=== PATIENT | male | born 1975 | race Caucasian/White ===

== ENCOUNTER 2020-10-25 05:55 | Day surgery (SDC) | payer OTHER, BC ==
[2020-10-25] MEDS ORDERED: Nozin Nasal Sanitizer NASBOTH ONE (06:00)
[2020-10-25] MEDS ORDERED: Bupivacaine 0.5% 30 ML SDV ONE ×2 (06:31→07:23)
[2020-10-25] MEDS ORDERED: Lactated Ringers 1,000 ML IV SCH (07:00)
[2020-10-25] MEDS ORDERED: Propofol 200 MG/20 ML SDV ONE (07:20)
[2020-10-25] MEDS ORDERED: Midazolam 1 MG/ML 2 ML SDV ONE (07:20)
[2020-10-25] MEDS ORDERED: fentaNYL 100 MCG/2 ML SDV ONE (07:20)
[2020-10-25] MEDS ORDERED: ceFAZolin 2 GM in Premix Bag 1 BAG IV ONE (07:30)
[2020-10-25] MEDS ORDERED: Ondansetron 4 MG/2 ML SDV ONE (07:59)
[2020-10-25] MEDS ORDERED: Rocuronium 50 MG/5 ML Vial ONE (07:59)
[2020-10-25] MEDS ORDERED: Neostigmine Methylsulfate 1 MG/ML 5 ML Syringe ONE (07:59)
[2020-10-25] MEDS ORDERED: Glycopyrrolate 0.2 MG/ML 5 ML MDV ONE (07:59)
[2020-10-25] MEDS ORDERED: Dexamethasone 4 MG/ML SDV ONE (07:59)
[2020-10-25] MEDS ORDERED: Succinylcholine 200 MG/10 ML MDV ONE (07:59)
[2020-10-25] MEDS ORDERED: methylPREDNISolone Acetate 40 MG/ML SDV ONE (08:28)
[2020-10-25] MEDS ORDERED: fentaNYL 250 MCG/5 ML SDV ONE (08:29)
[2020-10-25] MEDS ORDERED: Labetalol 20 MG/4 ML Syringe ONE (09:03)
[2020-10-25] MEDS ORDERED: Lactated Ringers 1,000 ML ONE (09:04)
[2020-10-25] MEDS ORDERED: Acetaminophen/oxyCODONE 325-5 MG Tab PO PRN (10:36)
[2020-10-25 11:27] VITALS: PULSE 92
[2020-10-25 11:29] VITALS: BP 145/75
--- NOTE | 2020-11-06 18:40 | OR ---
DATE OF PROCEDURE: 10/25/2020 SURGEON: Harish Gill MD PREOPERATIVE DIAGNOSES: 1. Impingement of right shoulder. 2. Acromioclavicular arthrosis, right shoulder. 3. Right carpal tunnel. POSTOPERATIVE DIAGNOSES: 1. Impingement of right shoulder. 2. Acromioclavicular arthrosis, right shoulder. 3. Right carpal tunnel. PROCEDURE: Arthroscopy of the right shoulder with subacromial decompression, acromioplasty, distal clavicle resection (Irck procedure), and injection of right carpal tunnel with Depo-Medrol. ANESTHESIA: Interscalene block and general anesthesia. INDICATIONS: Ian is a 45-year-old gentleman with a history of longstanding right shoulder and arm pain. He is having difficulty with overhead activities, particularly reaching and lifting and repetitive motion. He works for the post [employer] and does repetitive activity most of the day as well as reaching, pushing, carrying, etc. He has failed conservative treatment. Examination and MRI are consistent with impingement of right shoulder and AC arthrosis. He now presents for arthroscopy with evaluation of the rotator cuff, subacromial decompression with acromioplasty, and distal clavicle resection. He also has been having increasing difficulty with tingling and numbness and pain into the right hand. He has been diagnosed with a right carpal tunnel syndrome. Symptoms currently are intermittent but getting progressively worse, and the plan is for injection of the right carpal tunnel. The risks, benefits, and potential complications of the procedure were discussed. PROCEDURE IN DETAIL: After adequate anesthesia was obtained, the patient was placed in the lateral decubitus position and secured with a james bag positioner. The right shoulder and arm were prepped and draped in a sterile fashion, and 15 pounds of traction was placed in shoulder traction unit. A standard posterior portal was established, and glenohumeral joint was inspected. This revealed no evidence of articular cartilage damage to the humeral head. Some very mild thinning of the central glenoid was present. The labrum was intact, all portions of the glenoid. The biceps was intact with some very mild fraying at the junction of the biceps and superior labrum, but no SLAP tear or peel back was present. Subscapularis was intact. The undersurface of the rotator cuff was also intact with no evidence of significant tendinopathy or partial thickness tear. The scope was withdrawn and placed in to the subacromial space. This revealed a moderate bursitis. A lateral portal was established, and the bursa was cleared using a combination of shaver and ablation wand. A rather thick coracoacromial ligament with impingement against the cuff was noted. This was resected from the undersurface of the acromion. The anterolateral edge was delineated. A robert was then used to perform an acromioplasty, removing approximately 4 mm from the anterolateral edge and bevelling it medially and posteriorly. Resection was carried over to the AC joint. The inferior capsule was removed with the ablation wand and then shaver. The undersurface of the distal clavicle was then resected with a robert. When the limits of this was reached, a robert was placed to the anterior portal and resection continued in an [id number] manner. Once this was resected for approximately 8 mm, the scope was withdrawn. Arm was taken through internal and external rotation. Rotator cuff was inspected with no evidence of rotator cuff tear, fraying, or significant tendinopathy. The scope was withdrawn. Shoulder was drained. Port sites were closed in a standard fashion. A sterile dressing was applied. The right wrist was then injected at the distal wrist crease just ulnar to the palmaris longus in line with the 3rd and 4th finger intersection. The patient tolerated the procedure well. There were no complications. He was taken from the operating room in stable condition. Harish Gill MD /[id number] MTDLeonel
== END 2020-10-25 12:50 | disposition home or self-care (01) ==
LOC: JP.SDS 05:55
PROVIDERS: ATTEND Specialist
DX: M19.011 Primary osteoarthritis, right shoulder (principal); M25.811 Other specified joint disorders, right shoulder; G56.01 Carpal tunnel syndrome, right upper limb; M75.51 Bursitis of right shoulder; G47.33 Obstructive sleep apnea (adult) (pediatric); E66.01 Morbid (severe) obesity due to excess calories; I48.91 Unspecified atrial fibrillation; Z88.8 Allergy status to other drugs, medicaments and biological substances; Z98.890 Other specified postprocedural states; Z68.42 Body mass index [BMI] 45.0-49.9, adult
CPT/HCPCS: 20526; 29824; 29826; 36415; 80053; 85027; A9270; J0330; J0690; J1030; J1100; J2250; J2405; J2704; J2710; J3010; J3490; J7120

== ENCOUNTER → 2021-06-20 | Day surgery (SDC) | payer BC ==
[~2021-06-20] MED LIST: Lidocaine 0.5% 50 ML SDV ONE; Midazolam 1 MG/ML 2 ML SDV ONE; Propofol 200 MG/20 ML SDV ONE; fentaNYL 100 MCG/2 ML SDV ONE
[2021-06-20] MEDS: Nozin Nasal Sanitizer NASBOTH ONE (06:59)
[2021-06-20] MEDS: Lactated Ringers 1,000 ML IV SCH (06:59)
[2021-06-20] MEDS: ceFAZolin 1 GM in Premix Bag 1 BAG IV ONE (07:17)
[2021-06-20] MEDS: Bupivacaine 0.5% 30 ML SDV ONE (08:09)
[2021-06-20] MEDS: traMADol 50 MG Tab PO ONE (09:10)
[2021-06-20 09:15] VITALS: BP 142/92; PULSE 73
--- NOTE | 2021-06-28 11:06 | OR ---
DATE OF PROCEDURE: 06/20/2021 SURGEON: Harish Gill MD PREOPERATIVE DIAGNOSIS: Right carpal tunnel syndrome. POSTOPERATIVE DIAGNOSIS: Right carpal tunnel syndrome. PROCEDURE: Right carpal tunnel release. ANESTHESIA: Yan block with sedation. INDICATIONS: Ian is a 46-year-old gentleman with a history of right carpal tunnel syndrome, which has gotten progressively worse over the past couple of years. 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 He has documented carpal tunnel syndrome by EMG and progressive symptoms and findings. Now presents for carpal tunnel release. Risks, benefits, potential complications were discussed. DESCRIPTION OF PROCEDURE: After adequate anesthesia was obtained, right hand was prepped and draped in a sterile fashion. A longitudinal incision was made in the palm distal to the wrist crease in line with the interspace between the 3rd and 4th fingers. This was carried down through the subcutaneous tissues. Palmar fascia was divided and the transverse carpal ligament was then identified. The ligament was divided under direct visualization. Division was completed proximally and distally. Confirmation of division was done both visually and by palpation. Contents of the carpal tunnel were evaluated. Significant release of pressure on the median nerve was noted with transection of the ligament. No significant tenosynovitis or evidence of space-occupying mass was present. Wound was irrigated and closed with 3-0 nylon in interrupted mattress fashion. Skin edges were infiltrated with 0.5% Marcaine and a sterile dressing was applied. Patient tolerated the procedure very well. There were no complications. Taken from the operating room in stable condition. Harish Gill MD /[id number] MTDLeonel
== END ==
LOC: JP.SDS 05:40
PROVIDERS: ATTEND Specialist
DX: G56.01 Carpal tunnel syndrome, right upper limb (principal); G47.33 Obstructive sleep apnea (adult) (pediatric)
CPT/HCPCS: 36415; 80048; 85027; A9270-GY; J0690; J2250; J2704; J3010; J3490; J7120

== ENCOUNTER 2021-09-26 06:02 | Day surgery (SDC) | payer BC, OTHER ==
[2021-09-26] MEDS ORDERED: Bupivacaine 0.5% 30 ML SDV ONE (06:45)
[2021-09-26 06:54] LABS: CORONAVIRUS COVID-19 NAA NEGATIVE (NEGATIVE)
[2021-09-26] MEDS ORDERED: Nozin Nasal Sanitizer NASBOTH ONE (06:57)
[2021-09-26] MEDS ORDERED: Lactated Ringers 1,000 ML IV SCH (07:00)
[2021-09-26] MEDS ORDERED: ceFAZolin 1 GM in Premix Bag 1 BAG IV ONE (07:00)
[2021-09-26] MEDS ORDERED: Midazolam 1 MG/ML 2 ML SDV ONE (07:26)
[2021-09-26] MEDS ORDERED: fentaNYL 100 MCG/2 ML SDV ONE (07:26)
[2021-09-26] MEDS ORDERED: Propofol 200 MG/20 ML SDV ONE ×2 (07:26→08:17)
[2021-09-26] MEDS ORDERED: Lidocaine 0.5% 50 ML SDV ONE (07:26)
[2021-09-26] MEDS ORDERED: Ketorolac 30 MG/ML SDV ONE (08:13)
[2021-09-26] MEDS ORDERED: Acetaminophen/oxyCODONE 325-5 MG Tab PO ONE (09:10)
[2021-09-26 09:33] VITALS: BP 137/90; PULSE 78
== END 2021-09-26 10:00 | disposition home or self-care (01) ==
LOC: JP.SDS 06:02
PROVIDERS: ATTEND Specialist
DX: G56.02 Carpal tunnel syndrome, left upper limb (principal); I48.91 Unspecified atrial fibrillation; E78.5 Hyperlipidemia, unspecified; Z98.890 Other specified postprocedural states; Z79.899 Other long term (current) drug therapy; Z88.8 Allergy status to other drugs, medicaments and biological substances; Z20.822 Contact with and (suspected) exposure to COVID-19
CPT/HCPCS: 0241U; 36415; 64721; 80048; 85027; A9270; J0690; J1885; J2250; J2704; J3010; J3490; J7120

== ENCOUNTER 2023-01-08 06:47 | Day surgery (SDC) | payer OTHER, BC ==
[2023-01-08] MEDS ORDERED: Bupivacaine 0.5% 30 ML SDV ONE ×2 (06:55→07:22)
[2023-01-08 07:15] LABS: HEMATOCRIT 44.6 % (38.4-49.7); HEMOGLOBIN 14.8 g/dL (12.9-16.9); MEAN CORPUSCULAR HEMOGLOBIN 29.5 pg (31.6-35.5); MEAN CORPUSCULAR HGB CONC 33.2 g/dL (31.6-35.5); RED BLOOD CELL COUNT 5.01 M/uL (4.14-5.76); WHITE BLOOD CELL COUNT,WBC 9.1 K/uL (3.2-11.0)
[2023-01-08] MEDS ORDERED: Lactated Ringers 1,000 ML IV SCH (07:15)
[2023-01-08] MEDS ORDERED: fentaNYL 100 MCG/2 ML SDV ONE (07:20)
[2023-01-08] MEDS ORDERED: Midazolam 1 MG/ML 2 ML SDV ONE (07:20)
[2023-01-08] MEDS ORDERED: Propofol 200 MG/20 ML SDV ONE (07:20)
[2023-01-08] MEDS ORDERED: Nozin Nasal Sanitizer NASBOTH ONE (07:30)
[2023-01-08 07:37] LABS: A/G RATIO 0.9 (1.2-2.2); ALANINE AMINOTRANSFERASE,ALT 39 U/L (12-78); ALBUMIN 3.6 g/dL (3.4-5.0); ALKALINE PHOSPHATASE 117 U/L (46-116); ASPARTATE AMNIOTRANSFERASE,AST 16 U/L (15-37); BILIRUBIN TOTAL 0.4 mg/dL (0.2-1.0); BLOOD UREA NITROGEN,BUN 13 mg/dL (7-18); CALCIUM 8.9 mg/dL (8.5-10.1); CARBON DIOXIDE,CO2 30 mmol/L (21-32); CHLORIDE,CL 101 mmol/L (100-108); EST CRCL DRUG DOSING (CG) 94.29 mL/min; ESTIMATED GFR 93 mL/min (>60); GLUCOSE RANDOM 170 mg/dL (74-106); POTASSIUM,K 4.2 mmol/L (3.6-5.2); PROTEIN TOTAL,TP 7.6 g/dL (6.4-8.2); SODIUM,NA 137 mmol/L (140-148)
[2023-01-08 07:38] LABS: ANION GAP 10.2 mmol/L (5.0-14.0)
[2023-01-08] MEDS ORDERED: ceFAZolin 2 GM in Premix Bag 1 BAG IV ONE (08:00)
[2023-01-08] MEDS ORDERED: ceFAZolin 1 GM in Sodium Chloride 0.9% 50 ML IV ONE (08:00)
[2023-01-08] MEDS ORDERED: Succinylcholine 200 MG/10 ML MDV ONE (08:36)
[2023-01-08] MEDS ORDERED: Rocuronium 50 MG/5 ML Vial ONE (08:36)
[2023-01-08] MEDS ORDERED: Ondansetron 4 MG/2 ML SDV ONE (08:47)
[2023-01-08] MEDS ORDERED: Dexamethasone 4 MG/ML SDV ONE (08:47)
[2023-01-08] MEDS ORDERED: Glycopyrrolate 0.2 MG/ML 5 ML MDV ONE (08:48)
[2023-01-08] MEDS ORDERED: Neostigmine Methylsulfate 1 MG/ML 5 ML Syringe ONE (08:48)
[2023-01-08] MEDS ORDERED: fentaNYL 250 MCG/5 ML SDV ONE (08:57)
[2023-01-08] MEDS ORDERED: Labetalol 20 MG/4 ML Syringe ONE (09:25)
[2023-01-08] MEDS ORDERED: Acetaminophen/oxyCODONE 325-5 MG Tab PO PRN (10:45)
[2023-01-08 12:33] VITALS: BP 145/85; PULSE 92
== END 2023-01-08 12:43 | disposition home or self-care (01) ==
LOC: JP.SDS 06:47
PROVIDERS: ATTEND Specialist
DX: M19.011 Primary osteoarthritis, right shoulder (principal); G47.33 Obstructive sleep apnea (adult) (pediatric); I48.91 Unspecified atrial fibrillation; K21.9 Gastro-esophageal reflux disease without esophagitis; M75.21 Bicipital tendinitis, right shoulder
CPT/HCPCS: 29824; 29826; 36415; 64415; 80053; 85027; A9270; C1713; J0330; J0690; J1100; J2250; J2405; J2704; J2710; J3010; J3490; J7120